=== PATIENT | female | born 1985 | race Caucasian/White ===

== ENCOUNTER 2016-10-29 21:07 | Emergency (ER) | payer OTHER ==
[~2016-10-29] VITALS: Ht 160 cm; Wt 94.3 kg
[~2016-10-29 21:07] MED LIST: FAMO-90 PO; GABA300C PO; PRED10TA5 PO; PRED20TA5 PO; TRAM50TA94 PO
[2016-10-29 21:37] VITALS: BP 110/62
--- NOTE | 2016-10-29 23:36 | NUR ---
TO ER BED 6
--- NOTE | 2016-10-29 23:40 | NUR ---
31Y F BIB FAMILY C/O OF LOWER BACK PAIN X1 DAY. PAIN IS 10/10 IN SCALE. NO DISTRESS NOTED.
--- NOTE | 2016-10-30 | NUR ---
Patient being evaluated by DR. RAMIRES at bedside.
--- NOTE | 2016-10-30 00:30 | NUR ---
Patient discharged with v/s stable. Written and verbal after care instructions given and explained. Patient alert, oriented and verbalized understanding of instructions. Ambulatory with steady gait. All questions addressed prior to discharge. ID band removed. Patient advised to follow up with PMD. Rx of FLEXERIL 10 MG, NORCO 5/325 MG, MOTRIN 800 MG given. Patient educated on indication of medication including possible reaction and side effects. Opportunity to ask questions provided and answered.
[2016-10-30 00:33] VITALS: BP 113/65
== END 2016-10-30 00:30 | disposition home or self-care (01) ==
LOC: MED 21:28
DX: J45.909 Unspecified asthma, uncomplicated (principal); M62.830 Muscle spasm of back
CPT/HCPCS: 72110; 81002; 81025; 99283; 99284

== ENCOUNTER 2017-06-01 17:05 | Emergency (ER) | payer OTHER ==
[~2017-06-01] VITALS: Ht 157.5 cm; Wt 94.5 kg
[~2017-06-01 17:05] MED LIST changes: +TRAM50TA1 PO; -TRAM50TA94 PO
[2017-06-01 17:17] VITALS: BP 117/77
--- NOTE | 2017-06-01 17:24 | NUR ---
Pt to bed 06.
--- NOTE | 2017-06-01 17:33 | NUR ---
PATIENT PRESENTS TO ED WITH C/O RLQ PAIN X 1MONTH WORSE TODAY;FEELS NAUSEOUS BUT NO VOMITTING/DIARRHEA . SKIN IS PINK/WARM/DRY; AAOX4 WITH EVEN AND STEADY GAIT; LUNGS CLEAR BL; HR EVEN AND REGULAR; PT DENIES ANY FEVER, CP, SOB, OR COUGH AT THIS TIME; PATIENT STATES PAIN OF 10/10 AT THIS TIME;PATIENT POSITIONED FOR COMFORT; HOB ELEVATED; BEDRAILS UP X2; BED DOWN. ER MD MADE AWARE OF PT STATUS.
[2017-06-01] MEDS ORDERED: KETOROLAC 30 MG/ML VIAL IM ONE (18:05)
[2017-06-01 18:21] LABS: BILIRUBIN,URINE NEGATIVE (NEGATIVE); BLOOD, URINE NEGATIVE (NEGATIVE); COLOR,URINE YELLOW (YELLOW); LEUKOCYTE ESTERASE ,URINE 1+ (NEGATIVE); NITRITE, URINE NEGATIVE (NEGATIVE); UGLUCOSE NEGATIVE (NEGATIVE)
[2017-06-01 18:23] LABS: APPEARANCE,URINE HAZY (CLEAR)
--- NOTE | 2017-06-01 18:43 | NUR ---
Patient discharged with v/s stable. Written and verbal after care instructions given and explained. Patient alert, oriented and verbalized understanding of instructions. Ambulatory with steady gait. All questions addressed prior to discharge. ID band removed. Patient advised to follow up with PMD. Rx of MIRALAX POWDER, BENTYL AND MACROBID given. Patient educated on indication of medication including possible reaction and side effects. Opportunity to ask questions provided and answered.
[2017-06-01 18:44] VITALS: BP 98/58
[2017-06-01 18:53] LABS: RBC,URINE NONE SEEN /HPF (0-5)
== END 2017-06-01 18:43 | disposition home or self-care (01) ==
LOC: MED 17:05
DX: N39.0 Urinary tract infection, site not specified (principal); Z71.6 Tobacco abuse counseling
CPT/HCPCS: 74000; 81001; 81025; 87086; 96372; 99285; J1885

== ENCOUNTER 2017-07-22 18:39 | Emergency (ER) | payer OTHER ==
[~2017-07-22] VITALS: Ht 157.5 cm; Wt 95.7 kg
[2017-07-22 18:52] VITALS: BP 115/75
--- NOTE | 2017-07-22 19:16 | NUR ---
PATIENT TO ER BED 2
[2017-07-22] MEDS ORDERED: fentaNYL 0.05 MG/ML VIAL IM ONE (19:30)
--- NOTE | 2017-07-22 19:35 | NUR ---
PT PRESENTS TO ED WITH RIGHT LOWER BACK PAIN RADIATING TO RIGHT BUTTOCK AND RIGHT UPPER LEG. C/O SOME NUMBNESS TO RIGHT LOWER LEG WHEN BACK IS IN CERTAIN POSITIONS. PT A&O X4. DENIES INJURY. STATES HX OF SCIATIC PAIN. PAIN DESCRIBED 04/10. AWARE. PT IN POC, VSS, CONTINUE TO MONITOR.
[2017-07-22] MEDS ORDERED: HYDROmorphone PFS 2 MG/ML SYR IM ONE (20:50)
[2017-07-22 21:47] VITALS: BP 99/66
--- NOTE | 2017-07-22 21:47 | NUR ---
Patient discharged with v/s stable. Pt states pain lowered to 0/10 Written and verbal after care instructions given and explained. Patient alert, oriented and verbalized understanding of instructions. Ambulatory with steady gait. All questions addressed prior to discharge. ID band removed. Patient advised to follow up with PMD. Rx of Tramadol and Soma given. Patient educated on indication of medication including possible reaction and side effects. Opportunity to ask questions provided and answered.
== END 2017-07-22 21:47 | disposition home or self-care (01) ==
LOC: MED 18:39
DX: M54.41 Lumbago with sciatica, right side (principal); Z79.899 Other long term (current) drug therapy
CPT/HCPCS: 81002; 81025; 96372; 99284; J1170; J3010

== ENCOUNTER 2018-01-25 17:50 | Emergency (ER) | payer OTHER ==
[~2018-01-25] VITALS: Ht 157.5 cm; Wt 93.0 kg
[2018-01-25 18:17] VITALS: BP 93/70
--- NOTE | 2018-01-25 18:21 | NUR ---
PT STABLE TO WAIT IN LOBBY, INFORMED TO NOTIFY STAFF IMMEDIATELY IF CONDITION PERSISTS. VSS.
--- NOTE | 2018-01-25 18:21 | NUR ---
TRIAGE DONE BY KARLO TOLBERT
--- NOTE | 2018-01-25 21:41 | NUR ---
PT AMBULATED TO ER BED 12
--- NOTE | 2018-01-25 21:41 | NUR ---
32/F CAME IN W C/O INTERMITTENT LOWER ABD PAIN RADIATING TO LOWER BACK X 2 MONTHS. DENIES VAGINAL BLEEDING/DISCHARGE, DENIES DYSURIA/HEMATURIA, DENIES INJURY, N/V/D, FEVER/CHILLS PMH: CHRONIC BACK PAIN, SCIATICA
[2018-01-25] MEDS ORDERED: KETOROLAC 30 MG/ML VIAL IM ONE (22:20)
[2018-01-25] MEDS ORDERED: HYDROcodone/APAP 5/325 MG 1 TAB TAB PO ONE (22:20)
[2018-01-25] MEDS ORDERED: MORPHINE SULFATE 4 MG/ML SYR IM ONE (23:35)
--- NOTE | 2018-01-25 23:59 | NUR ---
DPatient discharged with v/s stable. Written and verbal after care instructions given and explained. Patient alert, oriented and verbalized understanding of instructions. Ambulatory with steady gait. All questions addressed prior to discharge. ID band removed. Patient advised to follow up with PMD. Rx of FLAGYL, NAPROSYN, NORCO given. Patient educated on indication of medication including possible reaction and side effects. Opportunity to ask questions provided and answered.
[2018-01-26 00:01] VITALS: BP 134/76
[2018-01-29 08:27] LABS: CHLAMYDIA TRACHOMATIS AMP DNA Negative (Negative)
== END 2018-01-25 23:59 | disposition home or self-care (01) ==
LOC: MED 17:50
DX: N76.0 Acute vaginitis (principal); R10.2 Pelvic and perineal pain; Z90.49 Acquired absence of other specified parts of digestive tract; Z79.899 Other long term (current) drug therapy; Z79.1 Long term (current) use of non-steroidal anti-inflammatories (NSAID)
CPT/HCPCS: 36415; 81002; 81025; 87210; 87491; 96372; 99284; J1885; J2270

== ENCOUNTER 2018-04-10 15:15 | Emergency (ER) | payer OTHER ==
[~2018-04-10] VITALS: Ht 157.5 cm; Wt 98.9 kg
[2018-04-10 15:21] VITALS: BP 119/68
--- NOTE | 2018-04-10 15:30 | NUR ---
Note undone in EDM - 04/10/18 at 1548 by KALYANI 33f bib self with 1st, 2nd, and 3th digits of right hand numbness and pain. No swelling or erythema noted. Patient denies injury to right hand. Cap refill < 3 seconds and Pulse +2 to right hand. Patient is aox4 to person, time, situation, and time. RR are even and unlabored. Patient positioned to comfort. All needs met at this time. Awaiting er md howell. Will continue to monitor.
--- NOTE | 2018-04-10 15:30 | NUR ---
33f bib self with 1st, 2nd, and 3th digits of right hand numbness and pain x 3 days. No swelling or erythema noted. Patient denies injury to right hand. Cap refill < 3 seconds and Pulse +2 to right hand. Patient is aox4 to person, time, situation, and time. RR are even and unlabored. Patient positioned to comfort. All needs met at this time. Awaiting er md howell. Will continue to monitor.
[2018-04-10] MEDS ORDERED: IBUPROFEN 400 MG TAB PO ONE (15:35)
--- NOTE | 2018-04-10 15:35 | NUR ---
emt at bedside
[2018-04-10 15:58] VITALS: BP 115/64
--- NOTE | 2018-04-10 15:58 | NUR ---
Patient discharged with v/s stable. Written and verbal after care instructions given and explained. Patient alert, oriented and verbalized understanding of instructions. Ambulatory with steady gait. All questions addressed prior to discharge. ID band removed. Patient advised to follow up with PMD. Rx of prednisone, tramadol, naprosyn given. Patient educated on indication of medication including possible reaction and side effects. Opportunity to ask questions provided and answered.
== END 2018-04-10 15:58 | disposition home or self-care (01) ==
LOC: MED 15:15
DX: G56.01 Carpal tunnel syndrome, right upper limb (principal); Z88.6 Allergy status to analgesic agent; Z88.8 Allergy status to other drugs, medicaments and biological substances
CPT/HCPCS: 99283

== ENCOUNTER 2018-06-13 12:36 | Emergency (ER) | payer OTHER ==
[~2018-06-13] VITALS: Ht 157.5 cm; Wt 98.9 kg
[2018-06-13 12:40] VITALS: BP 118/65
[2018-06-13 14:40] LABS: BASOPHILS % (AUTO) 0.4 % (0.0-2.0); EOSINOPHILS # (AUTO) 0.2 K/uL (0-0.4); EOSINOPHILS % (AUTO) 1.9 % (0.0-4.0); HEMATOCRIT 40.3 % (36-48); HEMOGLOBIN 13.6 g/dL (12.0-16.0); LYMPHOCYTES # (AUTO) 3.4 K/uL (2.5-16.5); MEAN CORPUSCULAR HEMOGLOBIN 30 pg (27-31); MEAN CORPUSCULAR HGB CONC 34 g/dL (33-37); MEAN CORPUSCULAR VOLUME 88.9 fL (80-94); MONOCYTES # (AUTO) 0.6 K/uL (0.8-1.0); NEUTROPHILS # (AUTO) 5.3 K/uL (1.8-7.7); NEUTROPHILS % (AUTO) 55.7 % (42.2-75.2); PLATELET COUNT (AUTO) 270 K/uL (140-450); RED BLOOD CELL COUNT(AUTO) 4.53 MIL/uL (4.20-5.40); RED CELL DISTRIBUTION WIDTH 13.1 % (11.6-13.7); WHITE BLOOD COUNT (AUTO) 9.5 K/uL (4.8-10.8)
[2018-06-13] MEDS: KETOROLAC 30 MG/ML VIAL IVP ONE (14:42)
[2018-06-13 15:00] LABS: APPEARANCE,URINE CLEAR (CLEAR); BILIRUBIN,URINE NEGATIVE (NEGATIVE); BLOOD, URINE NEGATIVE (NEGATIVE); COLOR,URINE YELLOW (YELLOW); LEUKOCYTE ESTERASE ,URINE NEGATIVE (NEGATIVE); NITRITE, URINE NEGATIVE (NEGATIVE)
[2018-06-13 15:01] LABS: UGLUCOSE 3+ (NEGATIVE)
[2018-06-13 15:07] LABS: ALBUMIN 3.7 g/dL (3.4-5.0); ANION GAP 12.1 (8-16); CARBON DIOXIDE 28.9 mmol/L (21-32); CREATININE 0.7 mg/dL (0.6-1.3); TOTAL BILIRUBIN 0.2 mg/dL (0.0-1.0)
[2018-06-13] MEDS: ONDANSETRON 4 MG/2 ML VIAL IVP ONE (16:52)
[2018-06-13] MEDS: MORPHINE SULFATE 4 MG/ML SYR IVP ONE (16:58)
[2018-06-13 18:03] VITALS: BP 111/62
== END 2018-06-13 18:00 | disposition home or self-care (01) ==
LOC: MED 12:36
DX: N83.202 Unspecified ovarian cyst, left side (principal); Z90.49 Acquired absence of other specified parts of digestive tract; Z98.51 Tubal ligation status; Z79.899 Other long term (current) drug therapy
CPT/HCPCS: 36415; 74176; 80053; 81003; 81025; 83690; 85025; 96374; 96375; 99284; J1885; J2270; J2405

== ENCOUNTER 2018-08-02 02:04 | Emergency (ER) | payer OTHER ==
[~2018-08-02] VITALS: Ht 157.5 cm; Wt 98.4 kg
[2018-08-02 02:17] VITALS: BP 118/88
--- NOTE | 2018-08-02 02:21 | NUR ---
33/F PRESENTS TO ER WITH CC HEADACHE, NAUSEA, DIZZINESS THROUGHOUT THE DAY. REPORTS 10/10 THROBBING PAIN TO HEAD AND BLURRY VISION. HX OF SLIPPED DISK AND MIGRAINES. AO X4. ABLE TO VERBALIZE NEEDS. FORM SETTER STRENGTH EQUAL BILATERALLY. ABD SOFT NONDISTENDED. BED IN LOWEST POSITION. SO AT BEDSIDE. ER MD MADE AWARE. WILL CONTINUE TO MONITOR.
--- NOTE | 2018-08-02 02:21 | NUR ---
pt amb with asst to er bed 2
[2018-08-02] MEDS ORDERED: PROCHLORPERAZINE 10 MG/2 ML VIAL IM ONE (02:35)
[2018-08-02] MEDS ORDERED: diphenhydrAMINE 50 MG/ML VIAL IM ONE (02:35)
[2018-08-02] MEDS ORDERED: MORPHINE SULFATE 4 MG/ML SYR IM ONE (03:20)
[2018-08-02 04:13] VITALS: BP 99/52
== END 2018-08-02 04:14 | disposition home or self-care (01) ==
LOC: MED 02:04
DX: G43.909 Migraine, unspecified, not intractable, without status migrainosus (principal); R11.0 Nausea; Z79.899 Other long term (current) drug therapy
CPT/HCPCS: 96372; 99283; J0780; J1200; J2270

== ENCOUNTER 2018-10-09 13:05 | Emergency (ER) | payer OTHER ==
[~2018-10-09] VITALS: Ht 154.9 cm; Wt 98.4 kg
[2018-10-09 13:12] VITALS: BP 109/68
--- NOTE | 2018-10-09 13:15 | NUR ---
PT SENT TO LOBBY TO WAIT FOR AVAILABLE BED.
--- NOTE | 2018-10-09 15:07 | NUR ---
PT AMBULATED TO CHAIR D.
[2018-10-09] MEDS ORDERED: KETOROLAC 30 MG/ML VIAL IM ONE (15:15)
--- NOTE | 2018-10-09 15:15 | NUR ---
PT IS A 33 Y/O FEMALE WHO PRESENTS TO THE ED C/O HEAD PAIN X4 DAYS, PT STATES THAT SHE HAS AN INFECTED FOLLICLE. PT REPORTS 7/10 ACHING HEAD PAIN THAT DOES NOT RADIATE. PT DENIES CP, SOB, N/V/D. NOTED SMALL BUMP TO HEAD. PT AWAKE AND ALERT, RR EVEN/UNLABORED. PT REPOSITIONED FOR COMFORT, SITTING IN CHAIR E. ER PROVIDER NOTIFIED. WILL CONTINUE TO MONITOR. HX PSORASIS
[2018-10-09 15:45] VITALS: BP 128/80
--- NOTE | 2018-10-09 15:45 | NUR ---
Patient discharged with v/s stable. Written and verbal after care instructions given and explained. Patient alert, oriented and verbalized understanding of instructions. Ambulatory with steady gait. All questions addressed prior to discharge. ID band removed. Patient advised to follow up with PMD. Rx of KELFEX 500MG AND IBUPROFEN 400MG given. Patient educated on indication of medication including possible reaction and side effects. Opportunity to ask questions provided and answered.
== END 2018-10-09 15:45 | disposition home or self-care (01) ==
LOC: MED 13:05
DX: L73.9 Follicular disorder, unspecified (principal); Z79.899 Other long term (current) drug therapy
CPT/HCPCS: 81002; 81025; 96372; 99283; J1885

== ENCOUNTER 2018-11-04 12:35 | Emergency (ER) | payer OTHER ==
[~2018-11-04] VITALS: Ht 157.5 cm; Wt 98.0 kg
[2018-11-04 12:40] VITALS: BP 103/60
--- NOTE | 2018-11-04 12:47 | NUR ---
PATIENT IN LOBBY VIA W/C
--- NOTE | 2018-11-04 12:57 | NUR ---
LT.HIP,LT.HIP,COCCYX/SACRAL XR ORDERED
--- NOTE | 2018-11-04 13:01 | NUR ---
PT IN WHEELCHAIR TO ER BED 12
--- NOTE | 2018-11-04 13:17 | NUR ---
PATIENT PRESENTS TO ED WITH accompanied by family c/o left sided body pain s/p mechanical fall today; ambulates with assistance . DENIES N/V/D; SKIN IS PINK/WARM/DRY; AAOX4 ; LUNGS CLEAR BL; HR EVEN AND REGULAR; PT DENIES ANY FEVER, CP, SOB, OR COUGH AT THIS TIME; PATIENT STATES PAIN OF 10/10 AT THIS TIME; VSS; PATIENT POSITIONED FOR COMFORT; HOB ELEVATED; BEDRAILS UP X2; BED DOWN. ER MD MADE AWARE OF PT STATUS.
[2018-11-04] MEDS ORDERED: CYCLOBENZAPRINE 10 MG TAB PO ONE (14:30)
[2018-11-04] MEDS ORDERED: KETOROLAC 60 MG/2 ML VIAL IM ONE (14:30)
--- NOTE | 2018-11-04 14:56 | NUR ---
PLACED 16" IN IMMOBILIZER ON LEFT KNEE OF PATIENT
[2018-11-04 15:46] VITALS: BP 132/89
--- NOTE | 2018-11-04 15:48 | NUR ---
Patient discharged with v/s stable. Written and verbal after care instructions given and explained. Patient alert, oriented and verbalized understanding of instructions. Ambulatory with steady gait. All questions addressed prior to discharge. ID band removed. Patient advised to follow up with PMD. Rx of naproxen/ tramadol given. Patient educated on indication of medication including possible reaction and side effects. Opportunity to ask questions provided and answered.
== END 2018-11-04 15:48 | disposition home or self-care (01) ==
LOC: MED 12:35
DX: S83.92XA Sprain of unspecified site of left knee, initial encounter (principal); S30.0XXA Contusion of lower back and pelvis, initial encounter; G89.29 Other chronic pain; Z79.899 Other long term (current) drug therapy; W01.0XXA Fall on same level from slipping, tripping and stumbling without subsequent striking against object, initial encounter; Y93.89 Activity, other specified; Y92.89 Other specified places as the place of occurrence of the external cause; Y99.8 Other external cause status
CPT/HCPCS: 29505; 72220; 73502; 73562; 81002; 81025; 96372; 99283; J1885

== ENCOUNTER 2019-02-06 15:27 | Emergency (ER) | payer OTHER ==
[~2019-02-06] VITALS: Ht 157.5 cm; Wt 97.1 kg
[2019-02-06 15:31] VITALS: BP 127/90
--- NOTE | 2019-02-06 15:40 | NUR ---
Patient ambulated to bed 1. RN evaluating patient at bedside.
--- NOTE | 2019-02-06 15:50 | NUR ---
PT BIB FAMILY WITH C/O SHARP CHEST PAIN AT LFT UPPER CHEST RADIATING TO LEFT HEAD SINCE THIS MORNING. PT TOOK IBUPROFEN AROUND 1030 , NO RELEF. HAD VOMITING THIS AM, DENIES ANY N, V, FEVER , CHILLS OR BLURRY VISION AT THIS TIME. DENIES ANY DIZINESS. PER PT, FEELS MARTIN PAIN AT LFT MARTELL EOF HEAD, HAS NUMBNESS ON HIS RT SIDE OF HAND. ABLE TO MOVE BOTH HANF, HAS SLIGHT WEAK STRENGHT ON RT HAND. PUPILS REACTIVE EQUALLY TO LIGHT. NO KNOWN ALLERGIES. TAKES BACLOFENA AND TRAMADOL AT HOME FOR PAIN. HX- NERVE PINCHING IN L4, L5, SCIATICA TO RT SIDE . RX- TRAMADOL, BACLOFEN NO KNOWN ALLERGY
--- NOTE | 2019-02-06 15:53 | NUR ---
Dr. Valle evaluating patient at bedside.
[2019-02-06] MEDS ORDERED: NACL 0.9% 1,000 ML IV ONE (16:05)
[2019-02-06] MEDS ORDERED: LORazepam 2 MG/ML VIAL IVP ONE (16:05)
[2019-02-06] MEDS ORDERED: KETOROLAC 30 MG/ML VIAL IVP ONE (16:05)
--- NOTE | 2019-02-06 16:30 | NUR ---
TRIED IV TWICE , NO IV ACCESS YET. CHARGE NURSE ZI TO HELP WITH IV.
[2019-02-06 16:53] LABS: BASOPHILS % (AUTO) 0.4 % (0.0-2.0); EOSINOPHILS # (AUTO) 0.1 K/uL (0-0.4); HEMATOCRIT 42.3 % (36-48); HEMOGLOBIN 14.2 g/dL (12.0-16.0); LYMPHOCYTES # (AUTO) 3.5 K/uL (2.5-16.5); LYMPHOCYTES % (AUTO) 40.5 % (20.5-51.1); MEAN CORPUSCULAR HEMOGLOBIN 31 pg (27-31); MEAN CORPUSCULAR HGB CONC 34 g/dL (33-37); MEAN CORPUSCULAR VOLUME 90.7 fL (80-94); MONOCYTES # (AUTO) 0.5 K/uL (0.8-1.0); MONOCYTES % (AUTO) 5.8 % (1.7-9.3); NEUTROPHILS # (AUTO) 4.5 K/uL (1.8-7.7); NEUTROPHILS % (AUTO) 52.3 % (42.2-75.2); PLATELET COUNT (AUTO) 251 K/uL (140-450); RED BLOOD CELL COUNT(AUTO) 4.66 MIL/uL (4.20-5.40); RED CELL DISTRIBUTION WIDTH 12.3 % (11.6-13.7); WHITE BLOOD COUNT (AUTO) 8.5 K/uL (4.8-10.8)
[2019-02-06 17:21] LABS: ALBUMIN 3.7 g/dL (3.4-5.0); ANION GAP 12.8 (8-16); CARBON DIOXIDE 27.2 mmol/L (21-32); CREATININE 0.7 mg/dL (0.6-1.3); TOTAL BILIRUBIN 0.3 mg/dL (0.0-1.0)
[2019-02-06] MEDS ORDERED: diphenhydrAMINE 50 MG/ML VIAL IVP ONE ×2 (17:25→17:50)
[2019-02-06] MEDS ORDERED: MORPHINE SULFATE 2 MG/ML SYR IVP ONE (17:50)
[2019-02-06 18:55] VITALS: BP 102/58
--- NOTE | 2019-02-06 18:55 | NUR ---
Patient discharged with v/s stable. Written and verbal after care instructions given and explained. Patient alert, oriented and verbalized understanding of instructions. Ambulatory with steady gait. All questions addressed prior to discharge. ID band removed. Patient advised to follow up with PMD. Rx of TRAMADOL AND GABAPENTIN given. Patient educated on indication of medication including possible reaction and side effects. Opportunity to ask questions provided and answered.
== END 2019-02-06 18:55 | disposition home or self-care (01) ==
LOC: MED 15:27
DX: G62.9 Polyneuropathy, unspecified (principal); R07.89 Other chest pain; R06.02 Shortness of breath; Z79.899 Other long term (current) drug therapy
CPT/HCPCS: 36415; 71045; 80053; 85025; 93005; 96374; 96375; 99284; J1200; J1885; J2060; J2270; J7030; Q0092

== ENCOUNTER 2019-04-28 02:26 | Emergency (ER) | payer OTHER ==
[~2019-04-28] VITALS: Ht 157.5 cm; Wt 96.6 kg
[2019-04-28 02:35] VITALS: BP 116/73
--- NOTE | 2019-04-28 02:35 | NUR ---
PT AMBULATED TO BED #9
--- NOTE | 2019-04-28 02:48 | NUR ---
PATIENT PRESENTS TO ED WITH RT WRIST PAIN X1WEEK. PT REPORTS DX OFCARPAL TUNNEL X2 YRS AGO. RADIATES TO RT SHOULDER. PT SELF MEDICATED WITH IBUPROFEN AT 1100 AND BACLOFEN/TRAMADOL AT 1800 AND NORCO AT 2200 ON 04/27, NO RELIEF OF PAIN. HX- SCIATICA, NERVE DAMAGE TO L4/L5 . DENIES N/V/D; SKIN IS PINK/WARM/DRY; AAOX4 WITH EVEN AND STEADY GAIT; LUNGS CLEAR BL; HR EVEN AND REGULAR; PT DENIES ANY FEVER, CP, SOB, OR COUGH AT THIS TIME; PATIENT STATES PAIN OF 5/10 AT THIS TIME; VSS; PATIENT POSITIONED FOR COMFORT; HOB ELEVATED; BEDRAILS UP X2; BED DOWN. ER MD MADE AWARE OF PT STATUS.
[2019-04-28] MEDS ORDERED: MORPHINE SULFATE 4 MG/ML SYR IM ONE (02:55)
--- NOTE | 2019-04-28 02:59 | NUR ---
WRIST SPLINT PLACED ON PTS RIGHT WRIST. PTS [facility] [place].
[2019-04-28 03:04] VITALS: BP 116/73
--- NOTE | 2019-04-28 03:04 | NUR ---
PT DISCHARGED WITH PAPERWORK. RX MONA BAJWA 5 FOR PAIN MANAGEMENT. EDUCATED PT REGARDING MEDICATIONS AND S/E. EDUCATED PT REGARDING NONPHARM INTERVENTIONS FOR PAIN. EDUCATED PT REGARDING D/C DIAGNOSIS AND INSTRUCTIONS. PT VERBALIZED UNDERSTANDING OF TEACHING. TOLD PT TO FOLLOW UP WITH PCP AND WHEN TO RETURN TO ED. PT VSS. ALL QUESTIONS ANSWERED.
== END 2019-04-28 03:04 | disposition home or self-care (01) ==
LOC: MED 02:26
DX: M25.531 Pain in right wrist (principal); Z90.49 Acquired absence of other specified parts of digestive tract; Z79.899 Other long term (current) drug therapy
CPT/HCPCS: 29125; 96372; 99283; J2270

== ENCOUNTER 2019-06-13 02:26 | Emergency (ER) | payer OTHER ==
[~2019-06-13] VITALS: Ht 157.5 cm; Wt 94.3 kg
[2019-06-13 02:31] VITALS: BP 105/53
--- NOTE | 2019-06-13 03:36 | NUR ---
DR. DE LOS SANTOS BEDSIDE EVALUATING PT
[2019-06-13 03:38] LABS: APPEARANCE,URINE CLOUDY (CLEAR); BILIRUBIN,URINE NEGATIVE (NEGATIVE); BLOOD, URINE NEGATIVE (NEGATIVE); COLOR,URINE YELLOW (YELLOW); LEUKOCYTE ESTERASE ,URINE NEGATIVE (NEGATIVE); NITRITE, URINE NEGATIVE (NEGATIVE); UGLUCOSE 3+ (NEGATIVE)
[2019-06-13] MEDS ORDERED: NACL 0.9% 1,000 ML IV ONE (03:41)
[2019-06-13] MEDS ORDERED: MORPHINE SULFATE 4 MG/ML SYR IVP ONE (03:45)
[2019-06-13] MEDS ORDERED: ONDANSETRON 4 MG/2 ML VIAL IVP ONE (03:45)
[2019-06-13 04:07] LABS: POTASSIUM 3.8 mmol/L (3.5-5.1)
[2019-06-13 04:08] LABS: ANION GAP 13.9 (8-16); CARBON DIOXIDE 26.9 mmol/L (21-32); CREATININE 0.7 mg/dL (0.6-1.3)
[2019-06-13 04:10] LABS: RBC,URINE 0-5 /HPF (0-5); URINE AMORPHOUS URATE 4+ /HPF (None Seen); WBC,URINE 0-5 /HPF (0-5)
[2019-06-13 04:19] LABS: TOTAL BILIRUBIN 0.3 mg/dL (0.0-1.0)
[2019-06-13 04:20] LABS: ALBUMIN 3.4 g/dL (3.4-5.0)
--- NOTE | 2019-06-13 04:26 | NUR ---
PT TAKEN TO CT VIA W/C
--- NOTE | 2019-06-13 04:41 | NUR ---
PT RETURNED FROM CT VIA W/C
[2019-06-13 04:42] LABS: BASOPHILS % (AUTO) 0.3 % (0.0-2.0); EOSINOPHILS # (AUTO) 0.2 K/uL (0-0.4); EOSINOPHILS % (AUTO) 1.7 % (0.0-4.0); HEMATOCRIT 38.4 % (36-48); LYMPHOCYTES # (AUTO) 3.6 K/uL (2.5-16.5); LYMPHOCYTES % (AUTO) 38.8 % (20.5-51.1); MEAN CORPUSCULAR HEMOGLOBIN 31 pg (27-31); MEAN CORPUSCULAR HGB CONC 34 g/dL (33-37); MEAN CORPUSCULAR VOLUME 90.8 fL (80-94); MONOCYTES # (AUTO) 0.6 K/uL (0.8-1.0); MONOCYTES % (AUTO) 6.2 % (1.7-9.3); NEUTROPHILS # (AUTO) 4.9 K/uL (1.8-7.7); PLATELET COUNT (AUTO) 260 K/uL (140-450); RED BLOOD CELL COUNT(AUTO) 4.23 MIL/uL (4.20-5.40); RED CELL DISTRIBUTION WIDTH 12.4 % (11.6-13.7); WHITE BLOOD COUNT (AUTO) 9.2 K/uL (4.8-10.8)
[2019-06-13] MEDS ORDERED: KETOROLAC 30 MG/ML VIAL IVP ONE (04:55)
[2019-06-13 06:00] VITALS: BP 145/68
--- NOTE | 2019-06-13 06:00 | NUR ---
Patient discharged with v/s stable. Written and verbal after care instructions given and explained. Patient alert, oriented and verbalized understanding of instructions. Ambulatory with steady gait. All questions addressed prior to discharge. ID band removed. Patient advised to follow up with PMD. Rx of NORCO AND NAPROSYN given. Patient educated on indication of medication including possible reaction and side effects. Opportunity to ask questions provided and answered.
== END 2019-06-13 06:00 | disposition home or self-care (01) ==
LOC: MED 02:26
DX: R10.31 Right lower quadrant pain (principal); Z90.49 Acquired absence of other specified parts of digestive tract; Z98.890 Other specified postprocedural states; Z79.899 Other long term (current) drug therapy
CPT/HCPCS: 36415; 74176; 80053; 81001; 81025; 83690; 85025; 87086; 96374; 96375; 99284; J1885; J2270; J2405

== ENCOUNTER 2019-08-29 18:00 | Emergency (ER) | payer OTHER ==
[~2019-08-29] VITALS: Ht 157.5 cm; Wt 94.3 kg
--- NOTE | 2019-08-29 18:10 | NUR ---
PT TO ER BED 8
[2019-08-29 18:14] VITALS: BP 106/65
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
--- NOTE | 2019-08-29 18:30 | NUR ---
XRAY AT BEDSIDE
[2019-08-29 19:08] VITALS: BP 106/65
--- NOTE | 2019-08-29 19:08 | NUR ---
THUMB SPICA PLACED BY EMT. CAP REFILL <2 SEC AFTER PLACEMENT
--- NOTE | 2019-08-29 19:08 | NUR ---
Patient discharged with v/s stable. Written and verbal after care instructions given and explained. Patient verbalized understanding. Ambulatory with steady gait. All questions addressed prior to discharge. Advised to follow up with PMD.
== END 2019-08-29 19:08 | disposition home or self-care (01) ==
LOC: MED 18:00
DX: S60.221A Contusion of right hand, initial encounter (principal); Z90.49 Acquired absence of other specified parts of digestive tract; Z98.51 Tubal ligation status; Z79.899 Other long term (current) drug therapy; W22.8XXA Striking against or struck by other objects, initial encounter; Y93.89 Activity, other specified; Y92.89 Other specified places as the place of occurrence of the external cause; Y99.8 Other external cause status
CPT/HCPCS: 29125; 73130; 99283; Q0092

== ENCOUNTER 2019-11-16 17:49 | Emergency (ER) | payer OTHER ==
[~2019-11-16] VITALS: Ht 160 cm; Wt 93.4 kg
[2019-11-16 17:51] VITALS: BP 107/65
[2019-11-16] MEDS ORDERED: KETOROLAC 30 MG/ML VIAL IVP ONE (18:10)
[2019-11-16] MEDS ORDERED: MORPHINE SULFATE 4 MG/ML SYR IVP ONE (18:40)
[2019-11-16] MEDS ORDERED: diphenhydrAMINE 50 MG/ML VIAL IVP ONE (18:50)
[2019-11-16 19:39] VITALS: BP 120/79
== END 2019-11-16 19:39 | disposition home or self-care (01) ==
LOC: MED 17:49
DX: G43.909 Migraine, unspecified, not intractable, without status migrainosus (principal); Z79.899 Other long term (current) drug therapy
CPT/HCPCS: 96374; 96375; 99284; J1200; J1885; J2270

== ENCOUNTER 2021-01-26 12:56 | Emergency (ER) | payer OTHER ==
[~2021-01-26] VITALS: Ht 157.5 cm; Wt 89.8 kg
[2021-01-26 12:56] VITALS: BP 113/82
--- NOTE | 2021-01-26 13:00 | NUR ---
PATIENT BIBA TO BED 12 AT THIS TIME
[2021-01-26] MEDS ORDERED: METOCLOPRAMIDE 10 MG/2 ML INJ VIAL IVP ONE ×2 (13:10→14:50)
[2021-01-26] MEDS ORDERED: NACL 0.9% 1,000 ML IV ONE (13:10)
--- NOTE | 2021-01-26 13:21 | NUR ---
PT TAKEN TO CT VIA W/C
--- NOTE | 2021-01-26 13:28 | NUR ---
PT BACK FROM CT AND ATTACHED TO MONITOR
--- NOTE | 2021-01-26 13:55 | NUR ---
BLOOD SAMPLES COLLECTED VIA IV ESTABLISHED BY MEDICS. PT PROVIDED URINE SAMPLE. ALL SAMPLES WALKED TO LAB
[2021-01-26 14:01] LABS: BASOPHILS % (AUTO) 0.2 % (0.0-2.0); EOSINOPHILS % (AUTO) 0.4 % (0.0-4.0); HEMATOCRIT 42.8 % (36-48); HEMOGLOBIN 14.6 g/dL (12.0-16.0); LYMPHOCYTES # (AUTO) 1.9 K/uL (2.5-16.5); LYMPHOCYTES % (AUTO) 28.6 % (20.5-51.1); MEAN CORPUSCULAR HEMOGLOBIN 32 pg (27-31); MEAN CORPUSCULAR HGB CONC 34 g/dL (33-37); MEAN CORPUSCULAR VOLUME 91.9 fL (80-94); MONOCYTES # (AUTO) 0.3 K/uL (0.8-1.0); MONOCYTES % (AUTO) 4.4 % (1.7-9.3); NEUTROPHILS # (AUTO) 4.5 K/uL (1.8-7.7); NEUTROPHILS % (AUTO) 66.4 % (42.2-75.2); PLATELET COUNT (AUTO) 262 K/uL (140-450); RED BLOOD CELL COUNT(AUTO) 4.65 MIL/uL (4.20-5.40); RED CELL DISTRIBUTION WIDTH 13.4 % (11.6-13.7); WHITE BLOOD COUNT (AUTO) 6.8 K/uL (4.8-10.8)
[2021-01-26 14:14] LABS: APPEARANCE,URINE CLEAR (CLEAR); BILIRUBIN,URINE NEGATIVE (NEGATIVE); BLOOD, URINE NEGATIVE (NEGATIVE); COLOR,URINE YELLOW (YELLOW); LEUKOCYTE ESTERASE ,URINE NEGATIVE (NEGATIVE); NITRITE, URINE NEGATIVE (NEGATIVE); UGLUCOSE NEGATIVE (NEGATIVE)
[2021-01-26 14:17] LABS: ANION GAP 11.9 (8-16); CARBON DIOXIDE 26.8 mmol/L (21-32); CREATININE 0.7 mg/dL (0.6-1.3); POTASSIUM 3.7 mmol/L (3.5-5.1)
[2021-01-26] MEDS ORDERED: KETOROLAC 30 MG/ML VIAL IVP ONE (14:50)
--- NOTE | 2021-01-26 15:50 | NUR ---
PT STILL C/O HEADACHE AND REQUESTING MORE PAIN MEDICATIONS. PT DENIES NAUSEA. DR BETHEA MADE AWARE
[2021-01-26] MEDS ORDERED: MORPHINE SULFATE 4 MG/ML SYR IVP ONE (16:00)
[2021-01-26 16:01] VITALS: BP 106/60
[2021-01-26] MEDS ORDERED: ONDA-24 PO (16:01)
[2021-01-26] MEDS ORDERED: NAPR-1704 PO (16:01)
--- NOTE | 2021-01-26 17:20 | NUR ---
PT STATES PAIN IS MUCH BETTER. VSS.
--- NOTE | 2021-01-26 18:00 | NUR ---
Patient discharged with v/s stable. Written and verbal after care instructions ABOUT MIGRAINE AND MENINGIOMA given and explained. Patient alert, oriented and verbalized understanding of instructions. Ambulatory with steady gait. All questions addressed prior to discharge. ID band removed. Patient advised to follow up with PMD. Rx of NAPROXEN AND ZOFRAN given. Patient educated on indication of medication including possible reaction and side effects. Opportunity to ask questions provided and answered.
== END 2021-01-26 18:00 | disposition home or self-care (01) ==
LOC: MED 12:56
DX: R51.9 Headache, unspecified (principal); R11.0 Nausea; H53.149 Visual discomfort, unspecified; G43.909 Migraine, unspecified, not intractable, without status migrainosus; Z90.49 Acquired absence of other specified parts of digestive tract; Z98.890 Other specified postprocedural states; Z90.710 Acquired absence of both cervix and uterus; Z79.899 Other long term (current) drug therapy
CPT/HCPCS: 36415; 70450; 80048; 81003; 81025; 85025; 96361; 96374; 96375; 96376; 99284; J1885; J2270; J2765; J7030

== ENCOUNTER 2021-09-04 14:10 | Emergency (ER) | payer MEDICAID, OTHER ==
[~2021-09-04] VITALS: Ht 160 cm; Wt 87.1 kg
[~2021-09-04 14:10] MED LIST changes: +NAPR-1704 PO; +ONDA-188 PO
[2021-09-04 14:14] VITALS: BP 144/81
--- NOTE | 2021-09-04 14:26 | NUR ---
DR MULLINS AT BEDSIDE.
[2021-09-04] MEDS ORDERED: KETOROLAC 15 MG/ML VIAL IVP ONE (14:30)
--- NOTE | 2021-09-04 14:30 | NUR ---
LAB AT BEDSIDE.
--- NOTE | 2021-09-04 14:33 | NUR ---
36 Y/O F C/O RLQ ABD PAIN 9/10 FOR 3 DAYS. PAIN RADIATES TO HER R LOWER BACK SIDE. DENIES TRAUMA, N/V OR CHILLS. NKA PMH: DM, ASTHMA, TUBAL LIGATION, PARTIAL HYSTERECTOMY, GOLDBLADDER REMOVAL
--- NOTE | 2021-09-04 14:35 | NUR ---
URINE COLLECTED AND HANDED TO THE LAB.
[2021-09-04 14:44] LABS: BASOPHILS # (AUTO) 0.2 K/uL (0.00-0.22); BASOPHILS % (AUTO) 2.6 % (0.0-2.0); EOSINOPHILS # (AUTO) 0.1 K/uL (0-0.4); HEMATOCRIT 41.5 % (36-48); HEMOGLOBIN 14.3 g/dL (12.0-16.0); LYMPHOCYTES # (AUTO) 2.2 K/uL (2.5-16.5); LYMPHOCYTES % (AUTO) 36.4 % (20.5-51.1); MEAN CORPUSCULAR HEMOGLOBIN 33 pg (27-31); MEAN CORPUSCULAR HGB CONC 35 g/dL (33-37); MEAN CORPUSCULAR VOLUME 95.2 fL (80-94); MONOCYTES # (AUTO) 0.4 K/uL (0.8-1.0); MONOCYTES % (AUTO) 6.3 % (1.7-9.3); NEUTROPHILS # (AUTO) 3.2 K/uL (1.8-7.7); NEUTROPHILS % (AUTO) 53.7 % (42.2-75.2); PLATELET COUNT (AUTO) 245 K/uL (140-450); RED BLOOD CELL COUNT(AUTO) 4.36 MIL/uL (4.20-5.40); RED CELL DISTRIBUTION WIDTH 12.7 % (11.6-13.7)
[2021-09-04 15:01] LABS: ALBUMIN 3.4 g/dL (3.4-5.0); ANION GAP 12.3 (8-16); CARBON DIOXIDE 24.4 mmol/L (21-32); CREATININE 0.7 mg/dL (0.6-1.3); POTASSIUM 3.7 mmol/L (3.5-5.1); TOTAL BILIRUBIN 0.3 mg/dL (0.0-1.0)
[2021-09-04 15:15] LABS: BILIRUBIN,URINE NEGATIVE (NEGATIVE); BLOOD, URINE NEGATIVE (NEGATIVE); LEUKOCYTE ESTERASE ,URINE NEGATIVE (NEGATIVE); NITRITE, URINE NEGATIVE (NEGATIVE); PH,URINE 7.5 (5.0-9.0); UGLUCOSE NEGATIVE (NEGATIVE)
[2021-09-04 15:18] LABS: APPEARANCE,URINE CLOUDY (CLEAR); COLOR,URINE STRAW (YELLOW)
[2021-09-04] MEDS ORDERED: HYDROcodone/APAP 5/325 MG 1 TAB TAB PO SCH (15:35)
--- NOTE | 2021-09-04 15:51 | NUR ---
ULTRASOUND AT BEDSIDE.
[2021-09-04 16:51] VITALS: BP 134/68
--- NOTE | 2021-09-04 16:52 | NUR ---
Patient discharged with v/s stable. Written and verbal after care instructions given FOR ABD PAIN and explained. Patient verbalized understanding. Ambulatory with steady gait. All questions addressed prior to discharge. Advised to follow up with PMD.
== END 2021-09-04 16:51 | disposition home or self-care (01) ==
LOC: MED 14:10
DX: R10.11 Right upper quadrant pain (principal); E11.9 Type 2 diabetes mellitus without complications; Z79.899 Other long term (current) drug therapy; Z90.49 Acquired absence of other specified parts of digestive tract
CPT/HCPCS: 36415; 74176; 76700; 80053; 81003; 83690; 85025; 96372; 99285; J1885; Q0092

== ENCOUNTER 2021-09-30 10:28 | Emergency (ER) | payer MEDICAID ==
[~2021-09-30] VITALS: Ht 157.5 cm; Wt 87.1 kg
[2021-09-30 10:30] VITALS: BP 110/70
--- NOTE | 2021-09-30 10:36 | NUR ---
36 Y/O F AMBULATED TO BED 10, C/O CHEST CONGESTION, COUGH, RUNNY NOSE, SORE THROAT X1 WEEK. 2 NEGATIVE COVID HOME TEST 4 DAYS AGO AND YESTERDAY. DENIES FEVER pmh: dm, asthma meds: metformin, albuterol NKDA
--- NOTE | 2021-09-30 10:48 | NUR ---
DR CASTRO AT BEDSIDE FOR MSE
[2021-09-30] MEDS ORDERED: KETOROLAC 60 MG/2 ML VIAL IM ONE (10:50)
[2021-09-30] MEDS ORDERED: ACET-8386 PO (11:02)
[2021-09-30] MEDS ORDERED: IBUP-2213 PO (11:02)
[2021-09-30] MEDS ORDERED: PRED20TA5 PO (11:02)
--- NOTE | 2021-09-30 11:14 | NUR ---
Patient discharged with v/s stable. Written and verbal after care instructions given and explained. Patient alert, oriented and verbalized understanding of instructions. Ambulatory with steady gait. All questions addressed prior to discharge. ID band removed. Patient advised to follow up with PMD. Rx of NORCO 5-325, IBUPROFEN, PREDNISONE given. Patient educated on indication of medication including possible reaction and side effects. Opportunity to ask questions provided and answered.
[2021-09-30 11:15] VITALS: BP 110/70
== END 2021-09-30 11:14 | disposition home or self-care (01) ==
LOC: MED 10:28
DX: R05.9 Cough, unspecified (principal); R06.02 Shortness of breath; R07.89 Other chest pain; J45.909 Unspecified asthma, uncomplicated; E11.9 Type 2 diabetes mellitus without complications; Z90.49 Acquired absence of other specified parts of digestive tract; Z98.890 Other specified postprocedural states; Z90.710 Acquired absence of both cervix and uterus; Z79.899 Other long term (current) drug therapy
CPT/HCPCS: 96372; 99283; J1885

== ENCOUNTER 2021-10-26 17:16 | Emergency (ER) | payer MEDICAID ==
[~2021-10-26] VITALS: Ht 157.5 cm; Wt 88.5 kg
[~2021-10-26 17:16] MED LIST changes: +ACET-8386 PO; +IBUP-2213 PO
[2021-10-26 17:25] VITALS: BP 120/75
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
== END 2021-10-26 18:35 | disposition home or self-care (01) ==
LOC: MED 17:16
DX: M79.674 Pain in right toe(s) (principal); J45.909 Unspecified asthma, uncomplicated; E11.9 Type 2 diabetes mellitus without complications; Z79.899 Other long term (current) drug therapy
CPT/HCPCS: 29515; 73630; 73660; 99283; 99284

== ENCOUNTER 2021-11-14 11:26 | Emergency (ER) | payer MEDICAID ==
[~2021-11-14] VITALS: Ht 157.5 cm; Wt 86.2 kg
[2021-11-14 11:39] VITALS: BP 104/63
--- NOTE | 2021-11-14 11:42 | NUR ---
PT AMBULATED TO ER BED 7
--- NOTE | 2021-11-14 11:54 | NUR ---
Shanna moon in [facility] - 11/14/21 at [email or web address] LARRY AT BEDSIDE EVALUATING PT
--- NOTE | 2021-11-14 11:54 | NUR ---
PA MIRZA AT BEDSIDE EVALUATING PT
[2021-11-14] MEDS ORDERED: oxyCODONE/APAP 5/325 MG 1 TAB TAB PO ONE (12:00)
[2021-11-14] MEDS ORDERED: KETOROLAC 30 MG/ML VIAL IM ONE (12:00)
--- NOTE | 2021-11-14 12:11 | NUR ---
36 Y/O FEMALE C/O LEFT LEG/GLUTEAL PAIN X3 DAYS. PT DENIES FALLS/INJURIES. PT RATES PAIN 9/10 AND SHE DESCRIBES SHARP AND PULLING AND NONRADIATING. DENIES NUMBESS/TINGLING. PT REPORTS HX OF SLIPPED DISC AT L4/L5 AND SEES PAIN MANAGEMENT. PT REPORTS TAKING NORCO THIS MORNING WITHOUT RELIEF. PTS FRIEND DROVE HER. PT A/O X4 WITH EVEN AND UNLABORED RESPIRATIONS. PMH: DM, HTN NKA
--- NOTE | 2021-11-14 12:12 | NUR ---
PT AMBULATED TO RESTROOM FOR URINE SAMPLE
[2021-11-14] MEDS ORDERED: ACET-8386 PO (13:02)
[2021-11-14] MEDS ORDERED: METH4TAB1 PO (13:02)
[2021-11-14] MEDS ORDERED: LID5T TP (13:02)
--- NOTE | 2021-11-14 13:16 | NUR ---
Patient discharged with v/s stable. Written and verbal after care instructions FOR RADICULAR PAIN given and explained. Patient alert, oriented and verbalized understanding of instructions. Ambulatory with steady gait. All questions addressed prior to discharge. ID band removed. Patient advised to follow up with PMD. Rx of HYDROCODONE, LIDOCAINE HYD AND METHYLPREDNISONE given. Opportunity to ask questions provided and answered.
--- NOTE | 2021-11-14 13:17 | NUR ---
The patient's care was reviewed and supervised by Nelly Vera RN.
== END 2021-11-14 13:16 | disposition home or self-care (01) ==
LOC: MED 11:26
DX: G89.29 Other chronic pain (principal); M54.16 Radiculopathy, lumbar region; J45.909 Unspecified asthma, uncomplicated; E11.9 Type 2 diabetes mellitus without complications
CPT/HCPCS: 81002; 81025; 96372; 99283; J1885

== ENCOUNTER 2021-11-25 11:13 | Emergency (ER) | payer MEDICAID ==
[~2021-11-25] VITALS: Ht 157.5 cm; Wt 84.4 kg
[~2021-11-25 11:13] MED LIST changes: +LID5T TP; +METH4TAB1 PO
[2021-11-25 11:15] VITALS: BP 109/72
--- NOTE | 2021-11-25 11:18 | NUR ---
36 Y/O FEMALE BIB SELF C/O RLQ PAIN 9/10 SHARP X 1 DAY AND LEFT LOW BACK PAIN 5/10 X1 WEEK. DENIES ANY DYSURIA, NAUSEA DENIES ANY VOMITING/DIARRHEA. TOOK NORCO, BACLOFEN, GABAPENTIN FOR PAIN WITH MINIMAL RELIEF. PMH: DIABETES, ASTHMA NKA
--- NOTE | 2021-11-25 12:04 | NUR ---
DR DE LOS SANTOS AT BEDSIDE FOR EVAL
[2021-11-25] MEDS ORDERED: MORPHINE SULFATE 4 MG/ML SYR IM ONE (12:10)
--- NOTE | 2021-11-25 12:13 | NUR ---
PT BROUGHT TO CT VIA WC
[2021-11-25 12:18] LABS: APPEARANCE,URINE SL CLOUDY (CLEAR); BILIRUBIN,URINE NEGATIVE (NEGATIVE); BLOOD, URINE NEGATIVE (NEGATIVE); COLOR,URINE AMBER (YELLOW); LEUKOCYTE ESTERASE ,URINE NEGATIVE (NEGATIVE); NITRITE, URINE NEGATIVE (NEGATIVE); UGLUCOSE NEGATIVE (NEGATIVE)
[2021-11-25 12:41] LABS: RBC,URINE 0-5 /HPF (0-5); WBC,URINE 0-5 /HPF (0-5)
[2021-11-25 12:42] LABS: YEAST,URINE Few /HPF (None Seen)
[2021-11-25 12:43] LABS: OTHER CASTS, URINE None Seen /LPF (None Seen); URINE AMORPHOUS URATE 1+ /HPF (None Seen)
[2021-11-25] MEDS ORDERED: NALO4SPR NS (12:57)
[2021-11-25] MEDS ORDERED: NAPR-54 PO (12:57)
[2021-11-25] MEDS ORDERED: DIAZ5TAB6 PO (12:57)
[2021-11-25 14:04] VITALS: BP 103/65
--- NOTE | 2021-11-25 15:00 | NUR ---
Patient discharged with v/s stable. Written and verbal after care instructions ABOUT SCIATICA AND ABD PAIN given and explained. Patient alert, oriented and verbalized understanding of instructions. Ambulatory with steady gait. All questions addressed prior to discharge. ID band removed. Patient advised to follow up with PMD. Rx of VALIUM, NARCAN, NAPROXEN given. Patient educated on indication of medication including possible reaction and side effects. Opportunity to ask questions provided and answered.
== END 2021-11-25 15:00 | disposition home or self-care (01) ==
LOC: MED 11:13
DX: R10.11 Right upper quadrant pain (principal); M54.50 Low back pain, unspecified; J45.909 Unspecified asthma, uncomplicated; E11.9 Type 2 diabetes mellitus without complications; Z90.49 Acquired absence of other specified parts of digestive tract
CPT/HCPCS: 74176; 81001; 81025; 87086; 96372; 99284; J2270

== ENCOUNTER 2022-01-16 07:48 | Emergency (ER) | payer MEDICAID, OTHER ==
[~2022-01-16] VITALS: Ht 157.5 cm; Wt 89.4 kg
[~2022-01-16 07:48] MED LIST changes: +DIAZ5TAB6 PO; +NALO4SPR NS; +NAPR-54 PO
[2022-01-16 07:54] VITALS: BP 117/76
--- NOTE | 2022-01-16 08:16 | NUR ---
walked in c/o pain on the back of neck onset 3 days ago. denies fall or trauma. states pain started in the am. describes pain as sharp and intermittent. denies nvd, denies cp, denies sob, or dizziness. aaoxs4, ambulatory. hx dm and asthma. vitals stable. states 9/10 intermittent sharp pain. urine collected, on monitor.
[2022-01-16] MEDS ORDERED: diazePAM 5 MG TAB PO ONE (08:40)
[2022-01-16] MEDS ORDERED: HYDROcodone/APAP 5/325 MG 1 TAB TAB PO ONE (08:40)
[2022-01-16] MEDS ORDERED: ACET-8386 PO (09:08)
[2022-01-16] MEDS ORDERED: CYCL-711 PO (09:08)
[2022-01-16 09:20] VITALS: BP 105/71
--- NOTE | 2022-01-16 09:21 | NUR ---
Patient discharged with v/s stable. Written and verbal after care instructions given and explained. Patient alert, oriented and verbalized understanding of instructions. Ambulatory with steady gait. All questions addressed prior to discharge. ID band removed. Patient advised to follow up with PMD. Rx norco given. Patient educated on indication of medication including possible reaction and side effects. Opportunity to ask questions provided and answered.
== END 2022-01-16 09:20 | disposition home or self-care (01) ==
LOC: MED 07:48
DX: M54.81 Occipital neuralgia (principal); J45.909 Unspecified asthma, uncomplicated; E11.9 Type 2 diabetes mellitus without complications; Z79.899 Other long term (current) drug therapy; Z90.49 Acquired absence of other specified parts of digestive tract
CPT/HCPCS: 81002; 81025; 99283

== ENCOUNTER 2022-06-07 15:29 | Emergency (ER) | payer OTHER ==
[~2022-06-07] VITALS: Ht 162.6 cm; Wt 77.1 kg
[~2022-06-07 15:29] MED LIST changes: +CYCL-711 PO; +TRAM-748 PO; -TRAM50TA1 PO
[2022-06-07 15:31] VITALS: BP 110/69
[2022-06-07] MEDS ORDERED: NACL 0.9% 1,000 ML IV ONE (16:05)
[2022-06-07] MEDS ORDERED: METOCLOPRAMIDE 10 MG/2 ML INJ VIAL IVP ONE (16:05)
[2022-06-07] MEDS ORDERED: diphenhydrAMINE 50 MG/ML VIAL IVP ONE (16:05)
--- NOTE | 2022-06-07 16:24 | NUR ---
PATIENT AMBULATED TO BED 6.
[2022-06-07 16:42] LABS: BASOPHILS % (AUTO) 0.3 % (0.0-2.0); EOSINOPHILS % (AUTO) 0.2 % (0.0-4.0); HEMATOCRIT 39.9 % (36-48); HEMOGLOBIN 13.7 g/dL (12.0-16.0); LYMPHOCYTES # (AUTO) 3.4 K/uL (2.5-16.5); LYMPHOCYTES % (AUTO) 33.1 % (20.5-51.1); MEAN CORPUSCULAR HEMOGLOBIN 31 pg (27-31); MEAN CORPUSCULAR HGB CONC 34 g/dL (33-37); MONOCYTES # (AUTO) 0.5 K/uL (0.8-1.0); MONOCYTES % (AUTO) 4.8 % (1.7-9.3); NEUTROPHILS # (AUTO) 6.3 K/uL (1.8-7.7); NEUTROPHILS % (AUTO) 61.6 % (42.2-75.2); PLATELET COUNT (AUTO) 266 K/uL (140-450); RED BLOOD CELL COUNT(AUTO) 4.39 MIL/uL (4.20-5.40); RED CELL DISTRIBUTION WIDTH 12.7 % (11.6-13.7); WHITE BLOOD COUNT (AUTO) 10.2 K/uL (4.8-10.8)
[2022-06-07 17:21] LABS: CARBON DIOXIDE 28.5 mmol/L (21-32); CREATININE 0.6 mg/dL (0.6-1.3); POTASSIUM 3.5 mmol/L (3.5-5.1); TOTAL BILIRUBIN 0.3 mg/dL (0.0-1.0)
--- NOTE | 2022-06-07 17:59 | NUR ---
PT SENT TO CT WITH TECH VIA W/C
--- NOTE | 2022-06-07 18:55 | NUR ---
Patient appears to be resting comfortably in bed. Vital Signs within normal limits. Respirations even and unlabored.
--- NOTE | 2022-06-07 19:08 | NUR ---
Report received and continue care of patient.
[2022-06-07 19:23] VITALS: BP 104/66
[2022-06-07] MEDS ORDERED: ACET-9234 PO (19:30)
--- NOTE | 2022-06-07 19:46 | NUR ---
Patient discharged with v/s stable. Written and verbal after care instructions given and explained. Patient alert, oriented and verbalized understanding of instructions. Ambulatory with steady gait. All questions addressed prior to discharge. ID band removed. Patient advised to follow up with PMD. Rx of FIORICET given. Patient educated on indication of medication including possible reaction and side effects. Opportunity to ask questions provided and answered.
== END 2022-06-07 19:46 | disposition home or self-care (01) ==
LOC: MED 15:29
DX: G43.909 Migraine, unspecified, not intractable, without status migrainosus (principal); H53.8 Other visual disturbances; R11.0 Nausea; J45.909 Unspecified asthma, uncomplicated; E11.9 Type 2 diabetes mellitus without complications; Z79.899 Other long term (current) drug therapy
CPT/HCPCS: 36415; 70450; 70496; 80053; 85025; 96374; 96375; 99285; J1200; J2765; Q9967; 99284

== ENCOUNTER 2022-06-30 14:38 | Emergency (ER) | payer OTHER ==
[~2022-06-30] VITALS: Ht 157.5 cm; Wt 85.7 kg
[2022-06-30 14:38] VITALS: BP 129/69
[~2022-06-30 14:38] MED LIST changes: -ACET-8386 PO; +ACET-8905 PO; +ACET-9234 PO
[2022-06-30] MEDS ORDERED: KETOROLAC 30 MG/ML VIAL IVP ONE (14:45)
[2022-06-30] MEDS ORDERED: NACL 0.9% 1,000 ML IV ONE (14:45)
[2022-06-30] MEDS ORDERED: ONDANSETRON 4 MG/2 ML VIAL IVP ONE (14:45)
[2022-06-30] MEDS ORDERED: ALBUTEROL 0.083% 2.5 MG/3 ML NEBU INH ONE (14:45)
--- NOTE | 2022-06-30 14:52 | NUR ---
COVID/FLU SWABS COLLECTED AND HANDED TO CORK MIXER
[2022-06-30 15:11] LABS: BASOPHILS % (AUTO) 0.3 % (0.0-2.0); EOSINOPHILS % (AUTO) 0.3 % (0.0-4.0); HEMATOCRIT 42.6 % (36-48); HEMOGLOBIN 14.5 g/dL (12.0-16.0); LYMPHOCYTES # (AUTO) 2.6 K/uL (2.5-16.5); LYMPHOCYTES % (AUTO) 27.5 % (20.5-51.1); MEAN CORPUSCULAR HEMOGLOBIN 31 pg (27-31); MEAN CORPUSCULAR HGB CONC 34 g/dL (33-37); MEAN CORPUSCULAR VOLUME 92.1 fL (80-94); MONOCYTES # (AUTO) 0.6 K/uL (0.8-1.0); NEUTROPHILS # (AUTO) 6.2 K/uL (1.8-7.7); NEUTROPHILS % (AUTO) 65.9 % (42.2-75.2); PLATELET COUNT (AUTO) 275 K/uL (140-450); RED BLOOD CELL COUNT(AUTO) 4.62 MIL/uL (4.20-5.40); RED CELL DISTRIBUTION WIDTH 12.9 % (11.6-13.7); WHITE BLOOD COUNT (AUTO) 9.4 K/uL (4.8-10.8)
[2022-06-30 15:42] LABS: ALBUMIN 3.8 g/dL (3.4-5.0); ANION GAP 12.6 (8-16); ASPARTATE AMINOTRANSFERASE 16 U/L (15-37); CARBON DIOXIDE 28.3 mmol/L (21-32); CHLORIDE 104 mmol/L (98-107); CREATININE 0.6 mg/dL (0.6-1.3); GFR ARICAN-AMERICAN 143 mL/min (>90); GLUCOSE 120 mg/dL (74-106); POTASSIUM 3.9 mmol/L (3.5-5.1); SODIUM SERUM 141 mmol/L (136-145); TOTAL BILIRUBIN 0.4 mg/dL (0.0-1.0); UREA NITROGEN, BLOOD 11 mg/dL (7-18)
--- NOTE | 2022-06-30 15:52 | NUR ---
[facility]AT[facility] DRU[facility] GIVEN ORDERED ENCOURAGED PATIENT FOR I NTERMITTENT DEEP BREATHING DURING THERAPY
[2022-06-30] MEDS ORDERED: ONDANSETRON 4 MG/2 ML VIAL ONE (16:22)
[2022-06-30] MEDS ORDERED: KETOROLAC 30 MG/ML VIAL ONE (16:31)
[2022-06-30] MEDS ORDERED: GUAI-649 PO ×2 (16:34→17:37)
[2022-06-30] MEDS ORDERED: IBUP-2213 PO ×2 (16:34→17:37)
[2022-06-30 17:37] VITALS: BP 155/81
--- NOTE | 2022-06-30 17:37 | NUR ---
Patient discharged with v/s stable. Written and verbal after care instructions given. Patient alert, oriented and verbalized understanding of instructions. Ambulatory with steady gait. All questions addressed prior to discharge. ID band removed. Patient advised to follow up with PMD. Rx of IBUPROFEN AND MUCINEX given. Opportunity to ask questions provided and answered. WORK NOTE HANDED TO PATIENT.
== END 2022-06-30 17:37 | disposition home or self-care (01) ==
LOC: MED 14:38
DX: J20.8 Acute bronchitis due to other specified organisms (principal); Z20.822 Contact with and (suspected) exposure to COVID-19; R07.2 Precordial pain; R05.9 Cough, unspecified; J45.909 Unspecified asthma, uncomplicated; E11.9 Type 2 diabetes mellitus without complications; F17.200 Nicotine dependence, unspecified, uncomplicated; Z79.899 Other long term (current) drug therapy
CPT/HCPCS: 36415; 71045; 80053; 84484; 85025; 87426; 87804; 93005; 94640; 96374; 96375; 99285; J1885; J2405; J7613

== ENCOUNTER 2022-09-14 17:14 | Emergency (ER) | payer OTHER ==
[~2022-09-14] VITALS: Ht 157.5 cm; Wt 88.6 kg
[~2022-09-14 17:14] MED LIST changes: +GUAI-649 PO
[2022-09-14 18:20] VITALS: BP 99/59
== END 2022-09-14 21:00 | disposition left against medical advice (07) ==
LOC: MED 17:14
DX: R10.9 Unspecified abdominal pain (principal); Z53.21 Procedure and treatment not carried out due to patient leaving prior to being seen by health care provider
CPT/HCPCS: 99281

== ENCOUNTER 2022-10-27 14:43 | Emergency (ER) | payer OTHER ==
[~2022-10-27] VITALS: Ht 157.5 cm; Wt 83.5 kg
[2022-10-27 14:47] VITALS: BP 121/75
--- NOTE | 2022-10-27 14:52 | NUR ---
pt to hilda cruz steady gait.
--- NOTE | 2022-10-27 15:36 | NUR ---
PT UNABLE TO PROVIDE URINE AT THIS TIME.
--- NOTE | 2022-10-27 17:32 | NUR ---
PATIENT AMBULATED TO BED 7.
--- NOTE | 2022-10-27 17:33 | NUR ---
AM TO BED 7 W NO DIFFICULTIES
[2022-10-27 17:36] LABS: APPEARANCE,URINE CLEAR (CLEAR); BILIRUBIN,URINE NEGATIVE (NEGATIVE); BLOOD, URINE NEGATIVE (NEGATIVE); COLOR,URINE YELLOW (YELLOW); LEUKOCYTE ESTERASE ,URINE NEGATIVE (NEGATIVE); NITRITE, URINE NEGATIVE (NEGATIVE); UGLUCOSE 1+ (NEGATIVE)
[2022-10-27] MEDS ORDERED: ONDANSETRON 4 MG/2 ML VIAL IVP ONE ×2 (17:50→20:55)
[2022-10-27] MEDS ORDERED: KETOROLAC 15 MG/ML VIAL IVP ONE (17:50)
[2022-10-27] MEDS ORDERED: NACL 0.9% 1,000 ML IV SCH (17:50)
[2022-10-27] MEDS ORDERED: MORPHINE SULFATE 4 MG/ML SYR IVP ONE ×2 (17:50→20:55)
--- NOTE | 2022-10-27 18:01 | NUR ---
Patient arrived to ED 7 for back pain and leg pain. Patient has constant back pain since 2003. Side pain just started. Dr. David came to MSE patient already. New orders noted. Alert and oriented x3. Respiration even and unlabored.
[2022-10-27 18:19] LABS: BASOPHILS # (AUTO) 0.1 K/uL (0.00-0.22); BASOPHILS % (AUTO) 0.8 % (0.0-2.0); EOSINOPHILS # (AUTO) 0.2 K/uL (0-0.4); EOSINOPHILS % (AUTO) 2.1 % (0.0-4.0); HEMATOCRIT 38.1 % (36-48); HEMOGLOBIN 13.3 g/dL (12.0-16.0); LYMPHOCYTES # (AUTO) 3.6 K/uL (2.5-16.5); MEAN CORPUSCULAR HEMOGLOBIN 32 pg (27-31); MEAN CORPUSCULAR HGB CONC 35 g/dL (33-37); MEAN CORPUSCULAR VOLUME 90.9 fL (80-94); MONOCYTES # (AUTO) 0.6 K/uL (0.8-1.0); NEUTROPHILS # (AUTO) 4.3 K/uL (1.8-7.7); NEUTROPHILS % (AUTO) 49.1 % (42.2-75.2); PLATELET COUNT (AUTO) 261 K/uL (140-450); RED CELL DISTRIBUTION WIDTH 12.9 % (11.6-13.7); WHITE BLOOD COUNT (AUTO) 8.7 K/uL (4.8-10.8)
[2022-10-27 18:38] LABS: ALBUMIN 3.5 g/dL (3.4-5.0); ANION GAP 11.3 (8-16); CARBON DIOXIDE 27.3 mmol/L (21-32); CREATININE 0.6 mg/dL (0.6-1.3); POTASSIUM 3.6 mmol/L (3.5-5.1); TOTAL BILIRUBIN 0.3 mg/dL (0.0-1.0)
--- NOTE | 2022-10-27 19:32 | NUR ---
Report given to shift lab technician RN for continuity of care. Patient in stable condition.
--- NOTE | 2022-10-27 20:20 | NUR ---
REPORT FR SULLIVAN RN, ASSUMED CARE , PT STILL C/O RT FLANK PAIN
--- NOTE | 2022-10-27 20:50 | NUR ---
PT STILL C/O RT FLANK PAIN ,MD MADE AWARE , WAITING FOR ADDITIONAL ORDERS
[2022-10-27] MEDS ORDERED: NAPR-54 PO (22:04)
[2022-10-27 22:10] VITALS: BP 93/52
== END 2022-10-27 22:10 | disposition home or self-care (01) ==
LOC: MED 14:43
DX: R10.11 Right upper quadrant pain (principal); M47.016 Anterior spinal artery compression syndromes, lumbar region; J45.909 Unspecified asthma, uncomplicated; E11.9 Type 2 diabetes mellitus without complications; Z79.4 Long term (current) use of insulin; Z79.899 Other long term (current) drug therapy
CPT/HCPCS: 36415; 74177; 80053; 81003; 83690; 84703; 85025; 96361; 96374; 96375; 96376; 99285; J1885; J2270; J2405; Q9967; J7030

== ENCOUNTER 2022-12-06 13:26 | Emergency (ER) | payer OTHER ==
[~2022-12-06] VITALS: Ht 157.5 cm; Wt 92.5 kg
[2022-12-06 13:34] VITALS: BP 111/67
--- NOTE | 2022-12-06 14:35 | NUR ---
SUN BRANHAM AT BEDSIDE FOR MSE.
[2022-12-06] MEDS ORDERED: diphenhydrAMINE 50 MG/ML VIAL IVP ONE (14:45)
[2022-12-06] MEDS ORDERED: KETOROLAC 30 MG/ML VIAL IVP ONE (14:45)
[2022-12-06] MEDS ORDERED: ONDANSETRON 4 MG/2 ML VIAL IVP ONE (14:45)
[2022-12-06] MEDS ORDERED: NACL 0.9% 1,000 ML IV ONE (14:45)
[2022-12-06] MEDS ORDERED: ACETAMINOPHEN EXTRA STRENGTH 500 MG TAB PO ONE (16:45)
[2022-12-06] MEDS ORDERED: METOCLOPRAMIDE 10 MG/2 ML INJ VIAL IVP ONE (16:45)
[2022-12-06 17:45] VITALS: BP 124/67
--- NOTE | 2022-12-06 17:45 | NUR ---
Patient discharged with v/s stable. Written and verbal after care instructions given and explained. Patient verbalized understanding. Ambulatory with steady gait. All questions addressed prior to discharge. Advised to follow up with PMD. IV D/C'D.
== END 2022-12-06 17:45 | disposition home or self-care (01) ==
LOC: MED 13:26
DX: G43.909 Migraine, unspecified, not intractable, without status migrainosus (principal); J45.909 Unspecified asthma, uncomplicated; I10 Essential (primary) hypertension; Z79.899 Other long term (current) drug therapy; Z90.49 Acquired absence of other specified parts of digestive tract; Z90.710 Acquired absence of both cervix and uterus; Z98.51 Tubal ligation status
CPT/HCPCS: 96361; 96374; 96375; 99284; J1200; J1885; J2405; J2765; J7030

== ENCOUNTER 2023-01-04 17:27 | Emergency (ER) | payer OTHER ==
[~2023-01-04] VITALS: Ht 160 cm; Wt 83.9 kg
[2023-01-04 17:39] VITALS: BP 104/80; PULSE 90; RESP 17; TEMP 97.4; O2SAT 98
[2023-01-04] MEDS ORDERED: oxyCODONE/APAP 5/325 MG 1 TAB TAB PO ONE (17:45)
[2023-01-04 17:56] VITALS: O2SAT 98
--- NOTE | 2023-01-04 17:56 | NUR ---
37 YO F PRESENT W/LT FACIAL PAIN RADIATING TO LT CATHOLIC SINCE LAST NIGHT. PT STATES IT IS PAINFUL TO OPEN HER MOUTH. PT DENIES INJURY/TRAUMA, DENTAL WORK, EAR PIAN, SORE THROAT, FLU SYMPTOMS, VISION CHANGES TO LT EYE, N,V,D, FEVER, CHILLS. PT STATES SHE TOOK TYLENOL AND IBUPROFEN W/O RELIEF. SAFETY MAINTAINED. HX: MIGRAINE, DM
--- NOTE | 2023-01-04 18:48 | NUR ---
The patient's care was reviewed and supervised by Jyotsna Duckworth, RN, RN.
== END 2023-01-04 18:47 | disposition home or self-care (01) ==
LOC: MED 17:27
DX: G43.909 Migraine, unspecified, not intractable, without status migrainosus (principal); E11.9 Type 2 diabetes mellitus without complications; Z79.899 Other long term (current) drug therapy; Z79.1 Long term (current) use of non-steroidal anti-inflammatories (NSAID)
CPT/HCPCS: 99283

== ENCOUNTER 2023-08-19 13:53 | Emergency (ER) | payer OTHER ==
[~2023-08-19] VITALS: Ht 157.5 cm; Wt 92.1 kg
[2023-08-19 14:01] VITALS: BP 101/67; PULSE 90; RESP 18; TEMP 98.6; O2SAT 98
[2023-08-19] MEDS ORDERED: SULF-59 PO (15:41)
[2023-08-19] MEDS ORDERED: CEPH-588 PO (15:41)
[2023-08-19] MEDS: HYDROcodone/APAP 5/325 MG 1 TAB TAB PO ONE (15:55)
[2023-08-19] MEDS: LIDOCAINE MPF 1% 10 MG/ML VIAL INJ ONE (15:57)
[2023-08-19 16:07] VITALS: BP 101/67; PULSE 90; RESP 18; TEMP 98.6; O2SAT 98
== END 2023-08-19 16:07 | disposition home or self-care (01) ==
LOC: MED 13:53
DX: M27.2 Inflammatory conditions of jaws (principal); E11.9 Type 2 diabetes mellitus without complications; Z79.4 Long term (current) use of insulin; Z79.899 Other long term (current) drug therapy
CPT/HCPCS: 10060; 99283; J2001

== ENCOUNTER 2024-03-14 15:27 | Emergency (ER) | payer SELFPAY ==
[~2024-03-14] VITALS: Ht 157.5 cm; Wt 89.0 kg
[~2024-03-14 15:27] MED LIST changes: +CEPH-588 PO; +NAPR-337 PO; -NAPR-54 PO; +SULF-59 PO
[2024-03-14 16:18] VITALS: BP 111/81; PULSE 82; RESP 16; TEMP 97.3; O2SAT 100
[2024-03-14 17:01] VITALS: BP 111/81; PULSE 82; RESP 16; TEMP 97.3; O2SAT 100
[2024-03-14] MEDS: diazePAM 5 MG TAB PO ONE (17:38)
[2024-03-14] MEDS: KETOROLAC 60 MG/2 ML VIAL IM ONE (17:41)
[2024-03-14] MEDS: ONDANSETRON 4 MG ODT PO ONE (19:52)
[2024-03-14] MEDS: MORPHINE SULFATE 4 MG/ML SYR IM ONE (19:57)
[2024-03-14] MEDS ORDERED: IBUP-2213 PO (20:38)
[2024-03-14] MEDS ORDERED: ACET-8905 PO (20:38)
== END 2024-03-14 20:53 | disposition home or self-care (01) ==
LOC: MED 15:27
DX: M54.6 Pain in thoracic spine (principal); E11.9 Type 2 diabetes mellitus without complications; Z79.899 Other long term (current) drug therapy
CPT/HCPCS: 81025; 96372; 99284; J1885; J2270; Q0162